=== PATIENT | male | born 1990 | race Caucasian/White ===

== ENCOUNTER 2017-07-06 07:19 | Day surgery (SDC) | payer BC ==
--- NOTE | 2017-07-05 21:44 | Pre-Procedure Note/Attestation ---
Pre-Procedure Note/Attestation Complete Prior to Procedure Planned Procedure: bilateral Procedure Narrative: Endoscopic sinus surgery Indications for Procedure Pre-Operative Diagnosis: Bilateral nasal sinus disease Attestation I attest that I discussed the nature of the procedure; its benefits; risks and complications; and alternatives (and the risks and benefits of such alternatives ), prior to the procedure, with the patient (or the patient's legal open claims representative). I attest that, if there was a reasonable possibility of needing a blood transfusion, the patient (or the patient's legal open claims representative) was given the [facility] standardized written summary, pursuant to the Jori Yoko Blood Safety Act ([place] Health and Safety Code # 1645, as amended). I attest that I re-evaluated the patient just prior to the surgery and that there has been no change in the patient's H&P, job# [id number] SOFI DAWSON Jul 05, 2017 21:44
--- NOTE | 2017-07-05 21:47 | Brief Operative Note ---
Immediate Post Operative Note Operative Note Chief Complaint: Recurrnet nasal polyposis and sinusitis Pre-op Diagnosis: Bilateral nasal sinus disease Procedure: Bilateral endoscopic sinus surgery Post-op Diagnosis: Bilateral nasal polyposis Post-op Diagnosis: same as pre-op Surgeon: Sofi Dawson MD Cancer Genetic Counselor: none Additional Surgeons: none Anesthesiologist: Amadeo Anesthesia: general Specimen: yes Complications: none Condition: stable Fluids: D5LR Estimated Blood Loss: volume - 25cc Drains: none Packing: Stamberger nasal gel Implant(s) used?: No SOFI DAWSON Jul 05, 2017 21:46
--- NOTE | 2017-07-05 21:50 | Discharge Instructions ---
Discharge Instructions Discharge Instructions Follow up with: 07/13/17 Diet: regular Resume Normal Activity?: No Activity: light activity Pneumonia Vaccine: pt refused vaccine Influenza Vaccine (Jan to Jun): pt refused vaccine Follow Up Orders pt has printed post op instructions, as well as Rx for Amoxicillin and Victor, given to him pre op last week during his pre op visit. Return to Work/School on: Jul 20, 2017 For Surgical Patients Clean and Dry: surgical site Dressing Care: keep dry and clean May shower: No Contact your physician for: bleeding, pain, tenderness, redness, swelling, yellowish discharge in the op. site For Congestive Heart Failure Reminder Report to your physician any weight gain of 5 pounds or more in one week. SOFI DAWSON Jul 05, 2017 21:50
[~2017-07-06] VITALS: Ht 182.9 cm; Wt 75.3 kg
[2017-07-06] VITALS (12 sets, daily range): BP systolic 129–157; BP diastolic 65–98
[~2017-07-06 07:19] MED LIST: AMOXICILLIN500 MG ORAL; NORCO 5-325 TA1 EAC1 ORAL
[2017-07-06] MEDS ORDERED: ceFAZolin sod 1 GM in D5W 55 ML IV ONE (07:45)
[2017-07-06] MEDS ORDERED: Dexamethasone 4mg/ml vial IVP ONE (07:45)
[2017-07-06] MEDS ORDERED: DYMISTA NASAL S23 GM NS (07:50)
[2017-07-06] MEDS ORDERED: LR 1000ml ONE (09:00)
[2017-07-06] MEDS ORDERED: Bupivacaine 0.5% Inj 30 ml vial INJ ONE (09:00)
[2017-07-06] MEDS ORDERED: Dexamethasone 4mg/ml vial ONE (09:00)
[2017-07-06] MEDS ORDERED: Midazolam 2mg/2ml Inj ONE (09:00)
[2017-07-06] MEDS ORDERED: fentaNYL 100 mcg/2 mL IV ONE (09:00)
[2017-07-06] MEDS ORDERED: Propofol 200mg/20ml IV ONE (09:00)
[2017-07-06] MEDS ORDERED: NS Irrig 1000ml ONE (09:00)
[2017-07-06] MEDS ORDERED: Sterile Water Irrig 1000ml IRRIG ONE (09:00)
[2017-07-06] MEDS ORDERED: Cocaine HCl 4% 4ml vial TOPIC ONE (09:01)
[2017-07-06] MEDS ORDERED: Lidocaine 1% 10mg/ml/Epi 0.005mg/ml 30ml vial INJ ONE (09:01)
--- NOTE | 2017-07-06 09:15 | Pre-op HX & Phy Repo 2 SIG ---
DATE OF ADMISSION: 07/06/2017 DATE OF SURGERY: 07/06/2017 HISTORY OF PRESENT ILLNESS: The patient is a 26-year-old male, who has bilateral sinusitis, who is unresponsive to nasal steroids, antihistamines, and antibiotics. He had an ID consult, and he has not been working. PAST MEDICAL HISTORY: Remarkable for nasal polyp, chronic sinusitis, allergic rhinitis, and acute sinusitis. PERSONAL HISTORY: Single. No children. He is a . Denies alcohol or drugs. PAST SURGICAL HISTORY: Sinus reconstruction 14 years ago and 4 nasal polyp surgeries since that time. ALLERGIES: No known drug allergies. FAMILY HISTORY: Cancer and cardiovascular disease. Preventative care. Exercise. Eats all foods. PHYSICAL EXAMINATION: GENERAL: The patient is a 6 feet individual, 172 pounds, BMI 23.33. VITAL SIGNS: In my office, blood pressure 120/80, temperature 98.6, heart rate is 70, and respiratory rate of 16. HEENT: Head is normocephalic. Eyes, PERRLA and EOMI. Lips, tongue, and neck normal. Nose, bilateral polyps and an intact septum coming from underneath of the middle turbinate, worse on the left than the right side. HEART: Normal S1, S2. No S3 or S4. No murmur, bruit, gallop, or rub. ABDOMEN: Soft and nontender. Normoactive bowel sounds. EXTREMITIES: Grossly normal. NEUROLOGIC: Cranial nerves II through XII grossly normal. GENITOURINARY: Not done. Not indicated to the surgery and is followed by the ID physician. The patient scheduled for bilateral endoscopic nasal polypectomy and sinus surgery. Risks, benefits, and alternatives have been explained. He signed consent in my office . He has printed preop and postop instructions as well as his medications, [place] and amoxicillin . Jose Daniel Aaron M.D. DR: ENOC JOB#: [id number] CC:
[2017-07-06] MEDS ORDERED: LR 1000ml 1,000 ML IVLG SCH (09:55)
[2017-07-06] MEDS ORDERED: Hydromorphone 0.5mg/0.5ml inj IVP PRN (10:00)
[2017-07-06] MEDS ORDERED: DiphenhydrAMINE 50mg/ml Inj IVP PRN (10:00)
--- NOTE | 2017-07-06 10:01 | Anethesia Preoperative Eval ---
Anesthesia Pre-op PMH/ROS General Date of Evaluation: Jul 06, 2017 Time of Evaluation: 09:05 Anesthesiologist: Amadeo ASA Score: ASA 1 Mallampati Score Class I : Soft palate, uvula, fauces, pillars visible Class II: Soft palate, uvula, fauces visible Class III: Soft palate, base of uvula visible Class IV: Only hard plate visible Mallampati Classification: Class II Surgeon: Galen Diagnosis: Nasal polyps Surgical Procedure: Endoscopic sinus surgery, polypectomy Family History: no anesthesia problems Allergies: Coded Allergies: No Known Allergies (Unverified , 07/06/17) Medications: see eMAR Past Medical History Cardiovascular: Denies: HTN, CAD, [place], valve dz, arrhythmia, other Pulmonary: Denies: asthma, COPD, EPI, other Gastrointestinal/Genitourinary: Denies: GERD, CRI, ESRD, other Neurologic/Psychiatric: Denies: dementia, CVA, depression/anxiety, TIA, other Endocrine: Denies: DM, hypothyroidism, steroids, other HEENT: Denies: cataract (L), cataract (R), glaucoma, CHITIMACHA (L), CHITIMACHA (R), other Hematology/Immune: Denies: anemia, DVT, bleeding disorder, other Musculoskeletal/Integumentary: Denies: OA, RA, DJD, DDD, edema, other PMH Narrative: Denies PSxH Narrative: Nasal surgery X3 Anesthesia Pre-op Phys. Exam Physician Exam Last Vital Signs Date Time Temp Pulse Resp B/P (MAP) Pulse Ox O2 Delivery O2 Flow Rate FiO2 07/06/17 07:54 98.1 61 18 131/67 100 Room Air 98.1 Constitutional: NAD Neurologic: CN 2-12 intact Cardiovascular: RRR, no M/R/G Respiratory: CTA Gastrointestinal: S/NT/ND Airway Exam Mallampati Score: Class II MO: full ROM: full Teeth: intact Anesthesia Pre-op A/P Labs WNL Risk Assessment & Plan Assessment: Healthy male for sinus surgery Plan: GA, LMA Status Change Before Surgery: No Pre-Antibiotics Drug: Ancef Given Within 1 Hr of Incision: Yes Time Given: 09:30 Jori Childs MD Jul 06, 2017 10:01
--- NOTE | 2017-07-06 10:05 | Immediate Post-Op Evaluation ---
Immediate Post-Op Evalulation Immediate Post-Op Evalulation Procedure: Endoscopic sinus surgery Date of Evaluation: Jul 06, 2017 Time of Evaluation: 10:25 IV Fluids: 650 Estimated Blood Loss: 30 Blood Pressure Systolic: 142 Blood Pressure Diastolic: 98 Pulse Rate: 89 Respiratory Rate: 13 O2 Sat by Pulse Oximetry: 100 Temperature (Fahrenheit): 98.9 Pain Score (1-10): 3 Nausea: No Vomiting: No Complications No complication Patient Status: awake, patent, none Hydration Status: adequate Drug: Ancef Given Within 1 Hr of Incision: Yes Time Given: 09:30 Jori Childs MD Jul 06, 2017 10:05
--- NOTE | 2017-07-06 10:19 | 48 Hour Post Anesthesia Eval ---
Post Anesthesia Evaluation Procedure: Endoscopic sinus surgery Date of Evaluation: Jul 06, 2017 Time of Evaluation: 11:00 Blood Pressure Systolic: 139 0: 89 Pulse Rate: 94 Respiratory Rate: 15 O2 Sat by Pulse Oximetry: 99 Airway: patent Nausea: No Vomiting: No Pain Intensity: 2 Hydration Status: adequate Cardiopulmonary Status: Stable Mental Status/LOC: patient returned to baseline Follow-up Care/Observations: As per surgery Post-Anesthesia Complications: No anesthetic complication Follow-up care needed: N/A Jori Childs MD Jul 06, 2017 10:19
[2017-07-06] MEDS ORDERED: Meperidine 50mg/ml Inj(FOR RIGORS ONLY) IVP ONE (10:20)
--- NOTE | 2017-07-06 12:30 | Operative Note - Dictated ---
DATE OF OPERATION: 07/06/2017 SURGEON: Jose Daniel Aaron M.D. LEGEND MAKER: None. ANESTHESIOLOGIST: Jori Childs M.D. ANESTHESIA: LMA general anesthesia as well as 10 mL of 0.5% Marcaine with 1:100,000 epinephrine. Additionally, 4 mL of 4% topical cocaine, placed on four nasal pledgets all accounted for at the end of the case. INDICATION FOR SURGERY: The patient with 3 nasal polypectomy surgeries in the past, who now has similar symptoms. Got a CT scan showing extensive disease in the ethmoid, maxillary, and sphenoid sinus. PREOPERATIVE DIAGNOSIS: The patient with 3 nasal polypectomy surgeries in the past, who now has similar symptoms. Got a CT scan showing extensive disease in the ethmoid, maxillary, and sphenoid sinus. POSTOPERATIVE DIAGNOSIS: Minimal disease. PROCEDURE: Bilateral endoscopic sinus disease. TECHNIQUE: The patient prepped and draped in the usual manner. Via LMA general anesthesia, the aforementioned bupivacaine was injected. Additionally, the cocaine pledgets were placed. I entered through the left naris first, medializing the middle turbinate and using a 0 and 30 degree scope to evaluate the ethmoid sinus which was clear of disease. The same process for the right ethmoid sinus and same finding. I then used a rat-tail to make a nasal antral window on the right and on the left under the inferior turbinate. Utilizing 0 and 30 degree scope noted there was minimal disease, although, cultures were taken for aerobic fungal and anaerobic. Permanent specimen was sent as well. The ostiomeatal unit was open on both sides, although, it was opened a little more with a side biter on the left by me. Stammberger nasal gel was placed on either nares, mustache dressing. SPONGE AND NEEDLE COUNT: Correct. EBL: 25 mL. COMPLICATIONS: None. DRAINS: None. The patient is awake, alert and stable once extubated in the operating room and now in the recovery room where I am dictating. Jose Daniel Aaron M.D. DR: ELIESER JOB#: [id number] CC:
[2017-07-06] MEDS ORDERED: HYDROmorphone 1mg/ml Carpuject SUBQ PRN (16:01)
[2017-07-06] MEDS ORDERED: Norco 5mg/325mg tab ORAL PRN (16:01)
== END 2017-07-06 13:00 | disposition home or self-care (01) ==
LOC: SUR 07:19
DX: J32.2 Chronic ethmoidal sinusitis (principal); J32.0 Chronic maxillary sinusitis; J32.3 Chronic sphenoidal sinusitis
CPT/HCPCS: 31231; 87070; 87075; 87205; J0690; J1100; J1170; J2175; J2250; J2405; J2704; J3010; J3490; J7120; 94003; 94150